=== PATIENT | male | born 1960 | race Caucasian/White ===

== ENCOUNTER 2017-04-12 21:59 | Emergency (ER) | payer OTHER ==
[~2017-04-12] VITALS: Ht 182.9 cm; Wt 115.5 kg
[~2017-04-12 21:59] MED LIST: ASPI-664 PO; SIMV40TA3 PO
[2017-04-12 22:08] VITALS: Ht 182.9 cm; Wt 115.5 kg
[2017-04-12] MEDS ORDERED: IBUPROFEN 800 MG TAB PO ONE (23:30)
--- NOTE | 2017-04-12 23:46 | RADRPT ---
PROCEDURE: XR Feet. CLINICAL INDICATION: Trauma, pain. TECHNIQUE: 6 views of the bilateral feet. COMPARISON: None available. FINDINGS: There is a possible fracture of the fifth proximal phalanx proximal metaphysis. There is a healed fr acture of the distal right fifth metatarsal shaft. There are small dorsal and plantar calcaneal enth esophytes in the right foot. IMPRESSION: 1. Possible fracture of the fifth proximal phalanx proximal metaphysis. 2. No acute right foot fracture. RPTAT: HTAR .Gerber Parson MD, Date Time Electronically viewed and signed by .Gerber Parson MD, on 04/12/2017 23:45 .R/
--- NOTE | 2017-04-12 23:47 | RADRPT ---
PROCEDURE: XR Finger. CLINICAL INDICATION: Pain. TECHNIQUE: Three views of the right thumb. COMPARISON: None available. FINDINGS: There is an apparent injury to the first finger nail. A 1 mm radiopacity projecting adjacent to the first distal phalanx on the PA oblique views nonspecific but might represent a foreign body. The jadon nt spaces are preserved. IMPRESSION: 1. No fracture or dislocation of the right thumb. 2. A 1 mm radiopacity projecting adjacent to the first distal phalanx on the PA oblique views nonsp ecific but might represent a foreign body. RPTAT: HTAR .Gerber Parson MD, MD Date Time Electronically viewed and signed by .Gerber Parson MD, on 04/12/2017 23:47 .R/
--- NOTE | 2017-04-13 00:07 | ERD ---
ER Documentation Chief Complaint Date/Time DATE: 04/13/17 TIME: 00:03 Chief Complaint both feet pain hit against door, crushed injury right thumb 3 wks ago HPI Patient is a 56-year-old male who presents with pain in his left foot particularly over the pinky toe after he accidentally stubbed it against something while getting out of bed earlier today. He also has pain in the right big toe after stubbing that as well. He also has pain in his right thumb after a crush injury that occurred 3 weeks ago. He has not taken any medications for pain. He is ambulatory. He denies any head injury or KO. No numbness or tingling. ROS All systems reviewed and are negative except as per history of present illness. Medications Home Meds Reported Medications Aspirin* (Aspirin* EC) 81 Mg Tablet.dr, 81 MG PO DAILY, TAB 10/02/14 Simvastatin (Simvastatin) 40 Mg Tablet, 40 MG PO HS, TAB 10/02/14 Allergies Allergies: Coded Allergies: No Known Allergy (Unverified , 10/02/14) PMhx/Soc History of Surgery: No Anesthesia Reaction: No Hx Neurological Disorder: No Hx Respiratory Disorders: No Hx Cardiac Disorders: Yes (HTN) Hx Psychiatric Problems: No Hx Miscellaneous Medical Probl: Yes (prostate problem, high cholesterol) Hx Alcohol Use: No Hx Substance Use: No Hx Tobacco Use: No Smoking Status: Never smoker FmHx Family History: No diabetes Physical Exam Vitals Vital Signs Date Time Temp Pulse Resp B/P Pulse Ox O2 Delivery O2 Flow Rate FiO2 04/12/17 22:08 98.2 81 20 146/74 98 Physical Exam INITIAL VITAL SIGNS: Reviewed by me GENERAL: Awake, alert and oriented x 4, well appearing, nontoxic, speaking in full sentences. No acute distress HEAD: Atraumatic NECK: Supple. No masses. Full range of motion. No meningismus. No midline tenderness. RESPIRATORY: Clear to auscultation bilaterally. Symmetric chest wall rise. No wheezing or rales. No accessory muscle use. CV: Regular rate and rhythm. No murmurs, rubs, or gallops. EXTREMITIES: Left foot: Swelling over the base of the left big toe, able to wiggle all toes, capillary refill less than 2 seconds, pedal pulses 2+, no bony abnormalities, sensation to light touch is intact. Right foot has mild tenderness over the base of the big toe without any swelling, capillary refill less than 2 seconds. Right thumb has subungual hematoma and part of the nail bed is coming off although it is intact, full range of motion in the finger, no bony abnormalities, no snuffbox tenderness Results 24 hrs Current Medications Medications (Trade) Dose Ordered Sig/Natalie Route PRN Reason Start Time Stop Time Status Last Admin Dose Admin Ibuprofen (Motrin) 800 mg ONCE ONCE PO 04/12/17 23:30 04/12/17 23:31 DC 04/12/17 23:21 Procedures/MDM X-ray of the feet reveals fracture of the left pinky toe. He was placed in the orthosis to and given outpatient orthopedic follow-up and prescription for pain medication and copy of radiology report. X-ray of the thumb reveals no fracture of a possible small foreign body and on physical examination I do see the foreign body removed it. He was given prescription for ibuprofen and [place]. Neurovascularly intact. Patient counseled regarding my diagnostic impression and care plan. Prior to discharge all questions answered. Pt agrees with treatment plan and understands strict return precautions. Pt is instructed to follow up with primary care provider within 24-48 hours. Precautionary instructions provided including instructions to return to the ER if not improving or for any worsening or changing symptoms or concerns. Departure Diagnosis: Primary Impression: Toe fracture Additional Impression: Thumb contusion Condition: Stable WILLY CASTILLO PA-C Apr 13, 2017 00:07
[2017-04-13] MEDS ORDERED: IBUP800T25 PO (00:09)
[2017-04-13] MEDS ORDERED: HYDR-906 PO ×3 (00:09→00:17)
== END 2017-04-13 00:55 | disposition home or self-care (01) ==
LOC: FTE 21:59
DX: S92.511A Displaced fracture of proximal phalanx of right lesser toe(s), initial encounter for closed fracture (principal); S60.111A Contusion of right thumb with damage to nail, initial encounter; I10 Essential (primary) hypertension; W22.09XA Striking against other stationary object, initial encounter; Y92.9 Unspecified place or not applicable; Z79.82 Long term (current) use of aspirin
CPT/HCPCS: 73140; 73630; Z7502; Z7610

== ENCOUNTER 2018-10-03 04:00 | Emergency (ER) | payer OTHER ==
[~2018-10-03] VITALS: Ht 185.4 cm; Wt 119.2 kg
[~2018-10-03 04:00] MED LIST changes: -ASPI-664 PO; +ASPI-817 PO; +HYDR-4011 PO; +IBUP800T48 PO
[2018-10-03 04:05] VITALS: BP 136/78; PULSE 78; RESP 19; Ht 185.4 cm; Wt 119.2 kg
[2018-10-03] MEDS ORDERED: KETOROLAC 30 MG INJ IM STA (04:26)
--- NOTE | 2018-10-03 04:26 | ERD ---
ER Documentation Chief Complaint Chief Complaint C/O LT GARCIA PAIN S/P USING GYM EQUIPMENT YESTERDAY HPI This is a 58-year-old male who presents emergency department with complaints of left garcia pain. Stated that this started yesterday while he was at the gym. Stated that he is using his bilateral lower extremity lifting, then the bar hit his left garcia. Denies headache, head injury, loss of consciousness, dizziness, neck pain, neck stiffness, throat pain, difficulty swallowing, difficulty breathing lying flat, shoulder pain, chest pain, back pain, abdominal pain, nausea, vomiting, constipation, diarrhea, urinary symptoms, loss of bowel and bladder control, difficulty walking due to pain, numbness or tingling sensation, calf pain, recent travel, recent major surgery in the last 3 weeks, calf pain, recent long travel, recent exposure to any illness, recent antibiotic use in the last 3 months, fever, chills, seizures. Past medical history: Surgical history: Social: Denies smoking, use of alcoholic beverages, use of illegal drugs. ROS All systems reviewed and are negative except as per history of present illness. Medications Home Meds Active Scripts Omeprazole* (Omeprazole*) 40 Mg Capsule., 40 MG PO DAILY, #30 CAP Prov:DILIP LIAO F 10/03/18 Ibuprofen* (Motrin*) 800 Mg Tab, 800 MG PO Q6H PRN for PAIN AND OR ELEVATED TEMP, #30 TAB Prov:DILIP LIAO 10/03/18 Hydrocodone/Acetaminophen ([place] 5-325 Tablet) 1 Each Tablet, 1 TAB PO Q6H PRN for PAIN, #20 TAB Prov:WILLY CASTILLO PA-C 04/13/17 Hydrocodone/Acetaminophen ([place] 5-325 Tablet) 1 Each Tablet, 1 TAB PO Q6H PRN for PAIN, #20 TAB Prov:WILLY CASTILLO PA-C 04/13/17 Hydrocodone/Acetaminophen ([place] 5-325 Tablet) 1 Each Tablet, 1 TAB PO Q6H PRN for PAIN, #20 TAB Prov:WILLY CASTILLO PA-C 04/13/17 Ibuprofen* (Motrin*) 800 Mg Tab, 800 MG PO Q6, #30 TAB Prov:WILLY CASTILLO PA-C 04/13/17 Reported Medications Aspirin* (Aspirin* EC) 81 Mg Tablet., 81 MG PO DAILY, TAB 10/02/14 Simvastatin (Simvastatin) 40 Mg Tablet, 40 MG PO HS, TAB 10/02/14 Allergies Allergies: Coded Allergies: No Known Allergy (Unverified , 10/02/14) PMhx/Soc History of Surgery: No Anesthesia Reaction: No Hx Neurological Disorder: No Hx Respiratory Disorders: No Hx Cardiac Disorders: Yes (HTN) Hx Psychiatric Problems: No Hx Miscellaneous Medical Probl: Yes (prostate problem, high cholesterol) Hx Alcohol Use: No Hx Substance Use: No Hx Tobacco Use: No Physical Exam Vitals Physical Exam Const: No acute distress Head: Atraumatic Eyes: Normal Conjunctiva ENT: Normal External Ears, Nose and Mouth. Neck: Full range of motion. No meningismus. Resp: Clear to auscultation bilaterally Cardio: Regular rate and rhythm, no murmurs Abd: Soft, non tender, non distended. Normal bowel sounds Skin: No petechiae or rashes Back: No midline or flank tenderness Ext: No cyanosis, or edema. Left tibia and fibula: Tenderness to palpation to the distal area. No calf tenderness. No obvious deformity. No obvious swelling. Left ankle is unremarkable. Left pedal pulses within normal limits. Left toes has good and full range of motion. Capillary refills to left lower extremity are less than 2 seconds. Left knee is unremarkable. Bilateral hips are stable and unremarkable. Right lower extremity is unremarkable. No neurovascular deficit. Neur: Awake and alert. No neurological deficits. Psych: Normal Mood and Affect Results 24 hrs Current Medications Medications Dose Sig/Natalie Start Time Status Last (Trade) Ordered Route PRN Stop Time Admin Dose Reason Admin Ketorolac 30 mg ONCE STAT 10/03/18 DC 10/03/18 Tromethamine IM 04:26 04:47 (Toradol) 10/03/18 04:27 1 tab ONCE ONCE 10/03/18 DC 10/03/18 Acetaminophen PO 04:30 04:46 / 10/03/18 04:31 Hydrocodone Bitart ([place] ()) Procedures/MDM Diagnostic tests: X-ray of the left tibia and fibula: Unremarkable left tibia and fibula exam. Treatment: Toradol IM. [place] p.o. Re-evaluation: Denies pain. No neurovascular deficit. No neurological deficit. Ambulatory with steady gait. Differential diagnosis I have low suspicion for comminuted fracture, compartment syndrome, displaced fracture, dislocation, DVT. Final diagnosis: Left garcia contusion. Prescription: Motrin. Follow-up with PCP in the next 24-48 hours. Come back here in the emergency department for any new symptoms or any worsening symptoms. All questions and concerns were answered. Patient and family members verbalized understanding and agreed with plan of care. Hemodynamically stable on discharge. Departure Diagnosis: Primary Impression: Garcia injury Additional Impression: Contusion of left tibia Condition: Stable Additional Instructions: Follow-up with PCP in the next 24-48 hours. Come back here in the emergency department for any new symptoms or any worsening symptoms. DILIP LIAO Oct 03, 2018 04:26
[2018-10-03] MEDS ORDERED: IBUP800T48 PO (04:29)
[2018-10-03] MEDS ORDERED: OMEP40CA6 PO (04:29)
[2018-10-03] MEDS ORDERED: HYDROCODONE/APAP (10/325) TAB PO ONE (04:30)
== END 2018-10-03 06:13 | disposition home or self-care (01) ==
LOC: FTE 04:00
DX: S80.12XA Contusion of left lower leg, initial encounter (principal); I10 Essential (primary) hypertension; X58.XXXA Exposure to other specified factors, initial encounter; Y92.89 Other specified places as the place of occurrence of the external cause; Z79.82 Long term (current) use of aspirin
CPT/HCPCS: 73590; J1885; Z7610; 96372